=== PATIENT | female | born 1990 | race Caucasian/White ===

== ENCOUNTER 2023-04-16 08:47 | Outpatient (CLI) | payer BC, SELFPAY ==
[2023-04-16 16:48] LABS: Creatinine Urine 169.8 mg/dL
[2023-04-16 17:12] LABS: MALB Creatinine Ratio < 3.5 mg/g (0-30); Microalbumin Urine Random < 6.0 mg/L (0-16.7)
[2023-04-16 17:12] LABS: Free T4 Free Thyroxine 1.16 ng/mL (0.78-2.19)
[2023-04-16 18:10] LABS: Hemoglobin A1C 6.9 % (<5.7)
[2023-04-16 18:12] LABS: Alanine Aminotransferase 21 U/L (6-35); Albumin Level 3.8 g/dL (3.5-5.1); Alkaline Phosphatase 53 U/L (38-126); Anion Gap 6 mmol/L (8-16); Aspartate Amino Transferase 51 U/L (14-36); Blood Urea Nitrogen 10 mg/dL (7-17); Calcium 8.6 mg/dL (8.4-10.2); Carbon Dioxide 28 mmol/L (22-30); Chloride 97 mmol/L (98-107); Estimated Glomerular Filt Rate > 60; Glucose 135 mg/dL (65-110); Potassium 4.2 mmol/L (3.4-5.0); Sodium 131 mmol/L (137-145)
[2023-04-19 14:10] LABS: DHEA-Sulfate 92 mcg/dL (18-391)
[2023-04-19 18:32] LABS: Testosterone Free 2.1 pg/mL (0.1-6.4); Testosterone Total 86 ng/dL (2-45)
== END 2023-04-16 08:48 | disposition home or self-care (01) ==
LOC: ANHGOSHLAB 09:00
PROVIDERS: PCP Nurse Practitioner Adult Health; Visit Provider Internal Medicine Endocrinology, Diabetes & Metabolism
DX: E13.9 Other specified diabetes mellitus without complications (principal)
CPT/HCPCS: 36415; 80053; 82043; 82627; 83036; 84402; 84403; 84439; 84443